=== PATIENT | female | born 1990 | race Caucasian/White ===

== ENCOUNTER → 2017-11-24 | Outpatient (CLI) | payer BC, OTHER ==
[2015-06-01 13:17] VITALS: BMI 25.6
[~2017-11-24] MED LIST: HYDR-4309 PO; HYDR200T38 PO; IBUP800T37 PO; NIFE10CA38 PO; OXYC-373 PO; PREN-162 PO
--- NOTE | 2017-11-25 14:19 | RADIOLOGY IMAGING REPORT ---
FACILITY: [facility] PATIENT NAME: MU MCGEE : [id number] MR: [id number] V: [id number] EXAM DATE: ORDERING PHYSICIAN: JULY DUCKWORTH TECHNOLOGIST: Veronica Easton PROCEDURE:US RIGHT BREAST COMPARISON:None. INDICATIONS:RIGHT BREAST LUMP AND TENDERNESS. PRIOR HISTORY OF MASTITIS, HISTORY OF BILATERAL BREAST REDUCTIONS, PAIN LATERAL ASPECT. FINDINGS: There is a small fatty replaced lymph node in the 9 o'clock position of the right breast measuring 7 mm in length. Otherwise no sonographic abnormality is identified. Clinical followup recommended for patient's right breast pain. Her right breast lump was apparently no longer palpable. DIAGNOSTIC CATEGORY 2--BENIGN FINDING. RECOMMENDATIONS: CLINICAL EVALUATION. IMPRESSION: BI-RADS 2: Clinical followup recommended for patient's right breast pain. Dictated by: Angie Velasco M.D. on 11/24/2017 at 17:04 Transcribed by: JONI on 11/24/2017 at 18:42 Approved by: Angie Velasco M.D. on 11/25/2017 at 14:18 [facility]
== END ==
LOC: MAMO 07:24
PROVIDERS: ATTEND Obstetrics & Gynecology
DX: N63.11 Unspecified lump in the right breast, upper outer quadrant (principal)

== ENCOUNTER → 2018-05-04 | Outpatient (CLI) | payer OTHER ==
[2015-06-01 13:17] VITALS: BMI 25.6
[~2018-05-04] MED LIST changes: +FLUC150T40 PO; -HYDR200T38 PO; +HYDR200T77 PO; +PREN-127 PO
== END ==
LOC: LAB 15:23
PROVIDERS: ATTEND Internal Medicine Rheumatology
DX: M35.9 Systemic involvement of connective tissue, unspecified (principal); Z79.899 Other long term (current) drug therapy
CPT/HCPCS: 36415; 81001; 82040; 82247; 82310; 82374; 82435; 82565; 82947; 84075; 84132; 84155; 84295; 84450; 84460; 84520; 85027; 85651; 86160; 87088

== ENCOUNTER → 2018-05-19 | Outpatient (CLI) | payer OTHER ==
[2015-06-01 13:17] VITALS: BMI 25.6
[~2018-05-19] MED LIST changes: +DIPH0.5D12 IM
[2018-05-19 12:16] LABS: PLATELET COUNT, AUTOMATED 352 K/uL (150-450)
== END ==
LOC: LAB 11:16
PROVIDERS: ATTEND Obstetrics & Gynecology
DX: O09.92 Supervision of high risk pregnancy, unspecified, second trimester (principal)
CPT/HCPCS: 36415; 82950; 85025

== ENCOUNTER → 2018-06-11 | Outpatient (CLI) | payer OTHER ==
[2015-06-01 13:17] VITALS: BMI 25.6
[~2018-06-11] MED LIST changes: +FLU150 PO
== END ==
LOC: LAB 11:50
PROVIDERS: ATTEND Obstetrics & Gynecology
DX: N89.8 Other specified noninflammatory disorders of vagina (principal)
CPT/HCPCS: 87210

== ENCOUNTER → 2018-07-29 | Outpatient (CLI) | payer OTHER ==
[2015-06-01 13:17] VITALS: BMI 25.6
== END ==
LOC: LAB 09:47
PROVIDERS: ATTEND Obstetrics & Gynecology
DX: Z34.93 Encounter for supervision of normal pregnancy, unspecified, third trimester (principal); N89.8 Other specified noninflammatory disorders of vagina
CPT/HCPCS: 87081; 87210

== ENCOUNTER → 2018-08-05 | Outpatient (CLI) | payer OTHER ==
[2015-06-01 13:17] VITALS: BMI 25.6
[2018-08-05 13:09] LABS: PLATELET COUNT, AUTOMATED 330 K/uL (150-450)
== END ==
LOC: LAB 12:17
PROVIDERS: ATTEND Physician Assistant
DX: L94.9 Localized connective tissue disorder, unspecified (principal); Z79.899 Other long term (current) drug therapy
CPT/HCPCS: 36415; 81001; 82040; 82247; 82310; 82374; 82435; 82565; 82947; 84075; 84132; 84155; 84295; 84450; 84460; 84520; 85025; 85651; 86160; 87088

== ENCOUNTER 2018-08-17 21:46 | Inpatient (IN) | payer OTHER ==
[~2018-08-17] VITALS: Ht 165.1 cm; Wt 64.0 kg
[2018-08-17] MEDS ORDERED: LR(*) 1000 ML BAG 1,000 ML IV SCH (21:48)
[2018-08-17] MEDS ORDERED: FAMOTIDINE(*) 20MG/50ML PREMIX 50 ML IVPB PRN (21:48)
[2018-08-17] MEDS ORDERED: OXYTOCIN 30 UNIT/D5LR 500 ML 500 ML IV PRN (21:48)
[2018-08-17] MEDS ORDERED: LIDOCAINE/SOD BICARB 8.4% SYR SC PRN (21:50)
[2018-08-17] MEDS ORDERED: LIDOCAINE 1% LOCAL 300 MG/30ML INJ PRN (21:50)
[2018-08-17] MEDS ORDERED: fentaNYL CITR 100 MCG/2 ML AMP IVP PRN (21:50)
[2018-08-17] MEDS ORDERED: METOCLOPRAMIDE 10 MG/2 ML SDV IVP PRN (21:50)
[2018-08-17] MEDS ORDERED: FLUSH 10 ML SYR IVP PRN (21:50)
[2018-08-17] MEDS ORDERED: LR(*) 1000 ML BAG 1,000 ML ONE (22:30)
[2018-08-17] MEDS ORDERED: LIDOCAINE/PF 2% 200MG/10ML AMP 200 MG/10 ML AMPUL EPI PRN (22:45)
[2018-08-17] MEDS ORDERED: ONDANSETRON 4 MG/2 ML VIAL IVP PRN (22:45)
[2018-08-17] MEDS ORDERED: FENTANYL/ROPIVACAINE 100 ML BAG EPI PRN (22:45)
[2018-08-17] MEDS ORDERED: fentaNYL CITR 100 MCG/2 ML AMP IT PRN (22:45)
[2018-08-17] MEDS ORDERED: BUPIVACAINE 0.25% MPF INJ EPI PRN (22:45)
[2018-08-17] MEDS ORDERED: EPIDURAL KEYS XX PRN (22:45)
[2018-08-17] MEDS ORDERED: LIDO/EPI 2% MPF 1:200,000 20ML EPI PRN (22:45)
[2018-08-17] MEDS ORDERED: BUPIVACAINE 0.5% INJ 30ML VIAL EPI PRN (22:45)
[2018-08-17 22:55] LABS: PLATELET COUNT, AUTOMATED 270 K/uL (150-450)
--- NOTE | 2018-08-17 23:24 | History & Physical ---
History of Present Illness EDC per LMP: Aug 22, 2018 Estimated Gestational Age: 39.2 Chief Complaint Labor History of Present Illness 28-year-old at 39w2d presents in labor and with SROM at 2000hrs. She has been in latent labor for over 24hrs and transitioned to more frequent and severe contractions at 1930 tonight. She then had a gush of fluid at 2000hrs which is light green tinged. She denies vaginal bleeding. Reports FM. No preeclampsia symptoms. PNR reviewed. PNC by SABRINA. c/b hx of CD for breech with desire for TOLAC, hx ITP and Raynaud's syndrome. Placenta is anterior, GBS negative. History Patient's Blood Type: O Positive Rubella Status: Immune Group B Strep Screen: Negative Obstetrical History: G1: 39wk PLTCD for breech G2: Current Past Medical History: PMH: Hx ITP in 2007, Raynaud's syndrome, hx stomach ulcers PSH: Splenectomy, , breast reduction Allergies: Coded Allergies: amoxicillin (Verified Allergy, Intermediate, RASH, 04/15/18) Social History: No T/E/D. . Family History: FH: thyroid disease FATHER Med Rec Home Meds Reported Medications Vits W-Ca,Fe,Fa(<1MG) ( VITAMINS) 1 Each Tablet, 1 EACH PO DAILY for 30 Days, TAB 04/15/18 Hydroxychloroquine Sulfate (PLAQUENIL) 200 Mg Tablet, 200 MG PO QPM 06/01/15 Review of Systems Constitutional: No Fever Neurological: No Syncope Eyes: No Vision Change Cardiovascular: No Chest Pain Respiratory: No Shortness of Breath, No Cough Gastrointestinal: No Nausea, No Vomiting, No Diarrhea Genitourinary: No Dysuria Musculoskeletal: No Pain Psychiatric: No Depression, No Anxiety Exam General Exam Vital Signs VS reviewed General Apperance: Alert/Awake/No Acute Distress Neuro: No Gross deficits Eyes: Normal Extraocular Movement & Vison Cardiovascular: Regular Rate and Rhythm Respiratory: No Respiratory Distress, Clear to Auscultation Abdomen: Gravid - Non-Tender : Normal Musculoskeletal: No Weakness/Pain Extremities: No Cyanosis,Clubbing or Edema Integumentary: Skin Intact without Lesions or Rash Psychological: Alert & Oriented X3, Appropriate Mood & Affect Vaginal Discharge/Fluid?: Green Tinged Fluid Cervical Dialation: 4 Cervical Effacement (%): 80 Cervical Consistency: Soft Cervical Position: Mid Station: -1 Presentation: Vertex Uterine Contractions(Q min): 5 Uterine Contraction Strength: Moderate UC Resting Tone: Soft Fetus Feeling Movement?: Yes FHT Category: I Medical Decision Making Data Points Result Diagram: 08/17/18 4312 Pre-Admit Course Medical Record Review: Yes VTE Prophylasis: Adult Deep Vein Thrombosis/Pulmonary: No Pharmacological Contraindicati: Surgical Contraindication Mechanical Contraindications: Surgical Contraindication Assessment and Plan Problems: (1) SROM (spontaneous rupture of membranes) Assessment & Plan: 28yo at 39w2d presents with SROM of green-tinged fluid. She is requesting epidural. Will allow to progress without augmentation if possible. However, pitocin will be started if needed. GBS negative. (2) History of delivery affecting Assessment & Plan: Hx of CD for breech with a 5#4oz baby. She desires TOLAC and is an excellent candidate. We have discussed in the office and again today the R/B/A of TOLAC versus RLTCD. Will allow to progress without augmentation as much as possible. Monitor for any signs of infection or rupture. (3) 39 weeks gestation of OXANA GAINES MD Aug 17, 2018 23:23
--- NOTE | 2018-08-17 23:40 | Anesthesia OB Pre-Anes Eval ---
History of Present Illness Anesthesia Start Date: Aug 17, 2018 Anesthesia Start Time: 22:59 OB Anesthesia Diagnosis: spontaneous labor, other (TOLAC) EDC: Jun 06, 2015 : 1 Para: 0 Result Diagram: 08/17/182 Weight (Pounds): 154 BMI Calculated: 25.62 Past Medical History Medical History: no pertinent history Surgical History: Previous Anesthesia: spinal Hx Anesthesia Reactions: No Hx Family Anesthesia Reaction: No Home Meds Reported Medications Vits W-Ca,Fe,Fa(<1MG) ( VITAMINS) 1 Each Tablet, 1 EACH PO D AILY for 30 Days, TAB 04/15/18 Hydroxychloroquine Sulfate (PLAQUENIL) 200 Mg Tablet, 200 MG PO QPM 06/01/15 Allergies: Coded Allergies: amoxicillin (Verified Allergy, Intermediate, RASH, 04/15/18) Anesthesia OB ROS Neurological: other (depression) ENT: Denies Tooth caps, Denies Loose teeth, Denies Chipped teeth, Denies Dentures, Denies Bridges, Denies Retainers, Denies Veneers, Denies Implants, Denies Tongue ring, Denies Other Pulmonary: No asthma, No smoker (pks/day/yrs), No other Airway Class: l Cardiovascular ROS: No edema, No arrhythmia, No other GI ROS: clear liquids ROS: No Herpes, No STD(s), No Liver Disease, No Renal Disease, No Other Endocrine ROS: No diabetes, No gestational diabetes, No thyroid disorder, No other Musculoskeletal ROS: low back pain ASA Classification: 2 Assessment and Plan Anesthesia Plan: UMU JAQUEZ CRNA Aug 17, 2018 23:40
--- NOTE | 2018-08-17 23:44 | Procedure Note ---
Anesthetic Placement Note Anesthesia Plan: LEB Permit for Anesthesia Signed: Yes Anesthesia Technique: Patient Sitting Anesthesia Prep: Chlorhexidine Interspace: L 4-5 Local Anesthetic: 1% Lidocaine, 25 Gauge Needle Amount Local - cc's: 3 Anesthesia Needle: 17g Touhy/Schliff Anesthesia Attempts: 1 Loss of Resistance: Normal Saline Depth of ASHLYN (cm): 5.5 Epidural Needle Placement: No CSF, No Blood, No Parasthesia Cerebral Spinal Fluid: No Catheter Insertion (cm): 4.5 Catheter Type: Claire - Spring Wound Epidural Dressing: Tegaderm, Tape Anesthesia Tray: Lot Number ([id number]), Expiration Date (08/22/2019), Reference Number ([id number]) Anesthesia Medications: Epidural Test Dose: 1.5 Lido/Epi (1:200,000), Dose - mL (5 mL incrementally), Time (2311), Negative Epidural Loading Dose: 0.2% Ropivicaine, With Fentanyl 2mcg/ml, Dose - ml (5), Time (2326) Epidural Infusion: 0.2% Ropivicaine, With Fentanyl 2mcg/ml, Start Time: (2326) Epidural Pump Setting: Bolus Dose - mL (5), Lockout - Minutes (15), Maintenance Rate - mL/hr (8), Maximum per Hour - mL (23) Complications: None Comment: fentanyl 100 mcg via epidural catheter at 2321 UMU BOWENS CRNA Aug 17, 2018 23:44
--- NOTE | 2018-08-18 01:46 | Anesthesia Progress Note ---
Progress/Maintenance Anesthesia Note Date: Aug 18, 2018 Anesthesia Note Time: 01:40 Pain Intensity: 7 (left hip/abdomen window) Pump: On Pump Rate (ML/HR): 11 Motor Level: Bending Knees-Bilateral Dilatation: 10 Position: Left, Tilt Drug Bolus: 0.25% Marcaine (5) UMU BOWENS CRNA Aug 18, 2018 01:46
--- NOTE | 2018-08-18 01:47 | Labor Progress Note ---
Labor Subjective Progress Notes Subjective Pt is comfortable with epidural, still has some slight discomfort on the left abdomen. No concerns. Labor Objective Vital Signs VS reviewed Vaginal Discharge/Fluid?: Green Tinged Fluid Cervical Dialation: 9.5 Cervical Effacement (%): 100 Station: +1 Presentation: Vertex Uterine Contractions(Q min): 3 Uterine Contraction Strength: Strong Fetus Heart Tones: 140 Heart Tone Variabilty: Moderate FHT Accelerations: 15X15 FHT Decelerations: Variable FHT Category: II General Exam General Appearance: Alert/Awake/No Acute Distress Respiratory: No Respiratory Distress : Normal Extremities: No Cyanosis,Clubbing or Edema Integumentary: Skin Intact without Lesions or Rash Psychological: Alert & Oriented X3, Appropriate Mood & Affect Other Result Diagram: 08/17/182221 Assessment and Plan Problems: (1) SROM (spontaneous rupture of membranes) Assessment & Plan: Pt has an anterior lip and is feeling pressure. She does have recurrent variable decels with contractions, but will not do amnioinfusion with hx of CD. She is getting close and will start pushing soon. Anticipate . (2) History of delivery affecting Assessment & Plan: Hx of CD for breech with a 5#4oz baby. She desires TOLAC and is an excellent candidate. We have discussed in the office and again today the R/B/A of TOLAC versus RLTCD. Monitor for any signs of infection or rupture. (3) 39 weeks gestation of OXANA GAINES MD Aug 18, 2018 01:47
[2018-08-18] MEDS ORDERED: NS(*) 0.9% 1000 ML BAG 0 ML ONE (01:55)
[2018-08-18] MEDS ORDERED: MISOPROSTOL 200 MCG TAB ONE (01:55)
[2018-08-18] MEDS ORDERED: CARBOPROST TROMETHAM 250MCG/ML IM ONLY ONE (01:55)
[2018-08-18] MEDS ORDERED: METHYLERGONOVINE MAL 0.2MG/ML ONE ×2 (01:56→02:39)
--- NOTE | 2018-08-18 02:41 | OB Delivery Note ---
Delivery Note Vaginal Delivery Type: Spont. Vaginal Delivery () Delivery Date: Aug 18, 2018 Delivery Time: 02:13 Length of Labor Stage II (hrs): 0.3 Labor Stage III (minutes): 17 Delivery Anesthesia: Epidural Infant Sex: Male Weight (gms): 2730 [place] Apgars: 1 Minute (8), 5 Minute (9) Repair Needed: Labial (Right), 2nd Degree (Vaginal) Estimated Blood Loss: 400 Delivery Complications: Nuchal Cord (x2), Other (Meconium fluid) Notes: Spontaneous labor OXANA GAINES MD Aug 18, 2018 02:41
[2018-08-18] MEDS ORDERED: LOR5/325 PO (02:42)
[2018-08-18] MEDS ORDERED: IBUP800T37 PO (02:42)
[2018-08-18] MEDS ORDERED: BENZOCAINE 20% 60 ML BTL TP PRN (02:45)
[2018-08-18] MEDS ORDERED: GLYCERIN/WITCH HAZEL LEAF 1 PK TOP PRN (02:45)
[2018-08-18] MEDS ORDERED: HYDROCORTISONE 2.5% CR 30GM TB PR PRN (02:45)
[2018-08-18] MEDS ORDERED: MEASLES,MUMP,RUBELLA VAC 0.5ML SC ONE (02:45)
[2018-08-18] MEDS ORDERED: LANOLIN OINT 7 GM TUBE TP PRN (02:45)
[2018-08-18] MEDS ORDERED: DIPHTH/TETANUS/ACEL. PERTUSSIS IM ONE (02:45)
[2018-08-18] MEDS ORDERED: INFLUENZA VIRUS VAC 0.5ML SYR IM ONLY ONE (02:45)
[2018-08-18] MEDS ORDERED: MAGNESIUM HYDROXIDE* 30ML UDCP PO PRN (02:45)
[2018-08-18] MEDS ORDERED: ACETAMINOPHEN 325 MG TAB PO PRN (02:45)
[2018-08-18 03:17] VITALS: BP 134/78; Ht 165.1 cm; Wt 64.0 kg
[2018-08-18] MEDS ORDERED: OXYTOCIN 10 UNIT/ML SDV IM ONE (03:25)
[2018-08-18 04:30] VITALS: BP 112/66
[2018-08-18] MEDS: IBUPROFEN 800 MG TAB PO SCH ×3 (04:35→21:08)
[2018-08-18 07:10] VITALS: BP 118/69
[2018-08-18 08:30] VITALS: BP 118/75
--- NOTE | 2018-08-18 08:56 | OB/GYN Progress Note ---
OB Subjective Progress Notes Subjective Doing well. Pain controlled with oral medications. Tolerating regular diet. Not yet ambulating or voiding as epidural has not fully warn off. Normal lochia. No preeclampsia symptoms. OB Objective Physical Exam Vital Signs Date Time Temp Pulse Resp B/P (MAP) Pulse Ox O2 Delivery O2 Flow Rate FiO2 08/18/18 04:30 99.0 100 16 112/66 (81) 08/18/18 03:17 98 Room Air Intake and Output 08/18/18 07:00 Intake Total 2250 ml Output Total 200 ml Balance 2050 ml Intake IV Total 2250 ml Output Urine Total 200 ml General Appearance: Alert/Awake/No Acute Distress Neurological: No Gross deficits Eyes: Normal Extraocular Movement & Vison Respiratory: No Respiratory Distress Abdomen: Soft, Non-Tender, Non-Distended, Fundus Firm Extremities: No Cyanosis,Clubbing or Edema Integumentary: Skin Intact without Lesions or Rash Psychological: Alert & Oriented X3, Appropriate Mood & Affect Result Diagram: 08/17/182 Assessment and Plan Problems: (1) examination following vaginal delivery Assessment & Plan: PPD#0 s/p . Doing well. Routine orders. Anticipate home tomorrow. OXANA GAINES MD Aug 18, 2018 08:56
--- NOTE | 2018-08-18 09:46 | Anesthesia Progress Note ---
Progress/Maintenance Anesthesia Note Date: Aug 18, 2018 Anesthesia Note Time: 02:30 Pump: Off Assessment and Plan Anesthesia Stop Day: Aug 18, 2018 Anesthesia Stop Time: 02:13 UMU BOWENS CRNA Aug 18, 2018 09:46
[2018-08-18] MEDS: DOCUSATE CALCIUM 240 MG CAP PO SCH ×2 (10:30→21:08)
[2018-08-18 16:47] VITALS: BP 115/71
[2018-08-18] MEDS: APAP/HYDROCODONE 325/5 TAB PO PRN (16:57)
[2018-08-18 19:45] VITALS: BP 120/73
[2018-08-19] MEDS: APAP/HYDROCODONE 325/5 TAB PO PRN ×2 (01:07→12:01)
[2018-08-19 01:17] VITALS: BP 124/64
[2018-08-19 04:05] VITALS: BP 116/75
[2018-08-19] MEDS: IBUPROFEN 800 MG TAB PO SCH ×2 (04:10→11:45)
--- NOTE | 2018-08-19 10:51 | Anesthesia Post Eval Note ---
Anesthesia Post Eval Note Vital Signs Date Time Temp Pulse Resp B/P (MAP) Pulse Ox O2 Delivery O2 Flow Rate FiO2 08/19/18 04:05 97.3 70 15 116/75 (89) 97 Room Air Pt able to participate in Eval: Yes Cardiovascular Status: Satisfactory Respiratory Status: Satisfactory Pain Managment: Satisfactory PO Nausea/Vomiting: Satisfactory Temperature Management: Satisfactory Mental Status: Satisfactory, Alert, Oriented X3 Post-Op Hydration Status: Satisfactory, Tolerating PO Well, Voiding w/o Difficulty Anesthesia Type: LEB Anesthesia Tolerance: no anesthesia concerns UMU BOWENS [employer] Aug 19, 2018 10:51
[2018-08-19] MEDS ORDERED: INFLUENZA VIRUS VAC 0.5ML SYR IM ONLY ONE (11:35)
[2018-08-19] MEDS: DOCUSATE CALCIUM 240 MG CAP PO SCH (11:45)
--- NOTE | 2018-08-19 12:14 | OB/GYN Progress Note ---
OB Subjective Progress Notes Subjective Doing good this morning. Tolerating regular diet. Ambulatory. Voiding with out any difficulty. Pain controlled with po pain medication. Bleeding appropriate. . GI: NEG Nausea, NEG Vomiting, NEG Flatus, NEG Bowel Movement : Voiding Well, Vaginal Bleeding, Moderate Pain: Mild Neurological: No Headache, No Other Eyes: No Visual Disturbances OB Objective Physical Exam Vital Signs Date Time Temp Pulse Resp B/P (MAP) Pulse Ox O2 Delivery O2 Flow Rate FiO2 08/19/18 04:05 97.3 70 15 116/75 (89) 97 Room Air Intake and Output 08/19/18 07:00 Intake Total 600 ml Balance 600 ml Intake Oral 600 ml # Voids 1 General Appearance: Alert/Awake/No Acute Distress Neurological: No Gross deficits Eyes: Normal Extraocular Movement & Vison Cardiovascular: Normal Rhythm & Peripheral Pulses, Regular Rate and Rhythm Respiratory: No Respiratory Distress Abdomen: Soft, Non-Tender, Non-Distended, Fundus Firm Extremities: No Cyanosis,Clubbing or Edema Integumentary: Skin Intact without Lesions or Rash Psychological: Alert & Oriented X3, Appropriate Mood & Affect Result Diagram: 08/17/18 2222 Assessment and Plan TRANSPLANT COORDINATOR Assessment: Stable TRANSPLANT COORDINATOR Plan: Discharge Home Today Problems: (1) examination following vaginal delivery Assessment & Plan: Plan for discharge today. FOllow up with Dr. Peralta in 2-3 weeks. ELMER GIORDANO DO Aug 19, 2018 12:14
--- NOTE | 2018-08-19 12:19 | OB/GYN Discharge Summary ---
Discharge Summary Reason for Hosp/Final Diag: (1) examination following vaginal delivery Hospital Course & Plan: Pt presented in Labor with a history of a prior C/S. Pt desired TOLAC. Progressed to complete and delivered. See delivery note for details. Pt remained on LDRP and met pp goals. Discharged PPD 2. Lates Vital Signs Vital Signs Date Time Temp Pulse Resp B/P (MAP) Pulse Ox O2 Delivery O2 Flow Rate FiO2 08/19/18 04:05 97.3 70 15 116/75 (89) 97 Room Air Weight (Pounds): 141 Result Diagram: 08/17/182221 Condition: Improved Discharge: Home Home Meds Active Scripts Hydrocodone Bit/Acetaminophen (HYDROCODON-ACETAMINOPHEN 5-325) 1 Each Tablet, 1 EACH PO Q4-6H PRN for pain, #20 TAB 0 Refills Prov:OXANA PERALTA MD 08/18/18 Ibuprofen (IBUPROFEN) 800 Mg Tablet, 1 TAB PO Q8H PRN for pain, #40 TAB 0 Refills TAKE WITH FOOD EVERY 8 HOURS Prov:OXANA PERALTA MD 08/18/18 Reported Medications Vits W-Ca,Fe,Fa(<1MG) ( VITAMINS) 1 Each Tablet, 1 EACH PO DAILY for 30 Days, TAB 04/15/18 Hydroxychloroquine Sulfate (PLAQUENIL) 200 Mg Tablet, 200 MG PO QPM 06/01/15 Follow up with: [facility] [place] [phone], Dr. Peralta [phone] Follow up in: 6 wks PP or PO Discharge Diet: As Tolerates Discharge Activity: As Tolerates, Pelvic Rest Special Instructions: ELMER GIORDANO DO Aug 19, 2018 12:19
--- NOTE | 2018-08-23 12:37 | DELIVERY NOTE ---
DELIVERY DATE: August 18, 2018 SURGEON: Anne Marie Peralta MD ANESTHESIA: Epidural by Nick Juarez CRNA PREOPERATIVE DIAGNOSIS: 1. Intrauterine at 39 weeks and 2 days presenting in spontaneous active labor. 2. History of caesarean delivery for breech, desire for trial of labor after caesarean. POSTOPERATIVE DIAGNOSIS: 1. Intrauterine at 39 weeks and 2 days presenting in spontaneous active labor. 2. History of caesarean delivery for breech, desire for trial of labor after caesarean. 3. Delivery of a viable male infant at 0213 hours, weighing 2730 grams with Apgars of 8 at one minute and 9 at five minutes. PROCEDURE Vaginal after caesarean. ESTIMATED BLOOD LOSS 400 cc. INDICATIONS This patient is a 28-year-old 2, para 1 who presented at 39 weeks and 2 days in spontaneous active labor. She also described spontaneous rupture of membranes at 2000 hours on 08/17/2018. At the time of presentation at 2207 hours, she was 4 cm dilated, 80% effaced and -1 station. She did receive an epidural for anesthesia and was noted to be complete at 0151 hours. She was then allowed to prepare for pushing. PROCEDURE The patient was properly identified and placed in the lithotomy position. She was prepped and draped in the usual fashion for vaginal delivery. She was asked to push and was able to bring the 's vertex to the perineum. She was then able to deliver the 's vertex in the SEPULVEDA position over an intact perineum. A nuchal cord was checked and noted. It was noted to be around the neck twice. This was relieved around the baby. The anterior shoulder delivered easily followed by the posterior shoulder. The remainder of the was easily delivered. Of note, there was meconium stained fluid. Therefore, the oropharynx and nasopharynx were bulb suctioned. The was dried and stimulated, giving a spontaneous cry and spontaneous movement of all four extremities. Initially, the was passed to mother's abdomen in good condition, where nursing personnel was in attendance. After 30 seconds, the cord was clamped x2 and cut by the father of the baby. The was then taken to the warmer for further evaluation and evacuation of meconium stained fluid. At this time, Pitocin was started in the IV fluid to help firm the uterus. Examination of the cervix, vaginal vault and perineum revealed a right labial laceration as well as second degree vaginal laceration. There was only a first degree perineal laceration which did not need repair. The labial laceration was reapproximated with 2-0 Vicryl followed by closure of the vaginal laceration. Once this was completed, the uterine tone was poor and evaluation recognized that to be Pitocin was not infusing in through the IV. The patient then received 10 units of Pitocin IM followed by the remainder of the Pitocin in the IV fluids. At this time, the uterine tone improved and the placenta delivered spontaneously intact and was passed off the table. Further examination of the cervix and vaginal vault removed no additional lacerations. The patient tolerated the procedure well and recovered in labor and delivery with the . All sponge and needle counts were correct at the end of this procedure. KELLI
== END 2018-08-19 12:00 | disposition home or self-care (01) | DRG 774 ==
LOC: OBSVTOIN 21:46 → OB 21:46 → UNDODISIN 08-19 18:50
PROVIDERS: ADMIT Obstetrics & Gynecology; ATTEND Obstetrics & Gynecology
PROC: 10E0XZZ Delivery of Products of Conception, External Approach (ICD-10-PCS; principal; 2018-08-17)
PROC: 0KQM0ZZ Repair Perineum Muscle, Open Approach (ICD-10-PCS; 2018-08-17)
DX: O34.211 Maternal care for low transverse scar from previous cesarean delivery (principal); O99.42 Diseases of the circulatory system complicating childbirth; O77.0 Labor and delivery complicated by meconium in amniotic fluid; O76 Abnormality in fetal heart rate and rhythm complicating labor and delivery; I65.8 Occlusion and stenosis of other precerebral arteries; O69.1XX0 Labor and delivery complicated by cord around neck, with compression, not applicable or unspecified; O70.1 Second degree perineal laceration during delivery; Z37.0 Single live birth; Z88.0 Allergy status to penicillin; Z3A.39 39 weeks gestation of pregnancy; Z23 Encounter for immunization
CPT/HCPCS: 36415; 84112; 85025; 86703; 86850; 86900; 86901; 90471; 90674; J2590; J3010; J7120; S0020

== ENCOUNTER → 2018-10-07 | Outpatient (CLI) | payer OTHER ==
[2018-08-18 03:17] VITALS: BMI 23.5
[~2018-10-07] MED LIST changes: -HYDR-4309 PO; +HYDR-653 PO; +IBUP-1671 PO; +LOR5/325 PO
== END ==
LOC: LAB 10:41
PROVIDERS: ATTEND Internal Medicine Rheumatology
DX: M35.9 Systemic involvement of connective tissue, unspecified (principal); Z79.899 Other long term (current) drug therapy
CPT/HCPCS: 36415; 81001; 82040; 82247; 82310; 82374; 82435; 82565; 82947; 84075; 84132; 84155; 84295; 84450; 84460; 84520; 85027; 85651; 86038; 86160; 86225; 86235